=== PATIENT | male | born 2000 | race Two or more races ===

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

== ENCOUNTER 2023-08-24 13:36 | Emergency (ER) | payer MEDICAID ==
[~2023-08-24] VITALS: Ht 177.8 cm; Wt 84.0 kg
[~2023-08-24 13:36] MED LIST: PANT40TA2 PO; SUCR1TAB22 OR; ZOFR4T
[2023-08-24 15:01] VITALS: BP 135/83; PULSE 87; RESP 16; TEMP 98.1; O2SAT 98
== END 2023-08-24 15:44 | disposition home or self-care (01) ==
LOC: EDBD 13:36 → ER 13:36 → EDSEX 13:36 → ER 15:44
DX: S70.12XA Contusion of left thigh, initial encounter (principal); F15.90 Other stimulant use, unspecified, uncomplicated; Z98.890 Other specified postprocedural states; Z91.041 Radiographic dye allergy status; Z79.899 Other long term (current) drug therapy; V23.41XA Electric (assisted) bicycle driver injured in collision with car, pick-up truck or van in traffic accident, initial encounter; Y93.I9 Activity, other involving external motion; Y92.89 Other specified places as the place of occurrence of the external cause; Y99.8 Other external cause status